=== PATIENT | male | born 1965 ===

== ENCOUNTER 2023-12-27 08:43 | Outpatient (AMB) | payer MEDICARE, MEDICAID, SELFPAY ==
--- NOTE | 2023-12-27 08:52 | MHC.OFFVIS ---
Vital Signs 12/27/23 08:53 Height 6 ft Weight 260 lb BMI 35.3 BP 140/76 H Blood Pressure Location Lt brachial Position Sitting Respiration 16 Pulse 79 Pulse Source Pulse Oximeter Pulse Oximetry (%) 96 Oxygen Delivery Method Room Air Intake Visit Reasons: Lumbar Degenerative Disease/Chronic Low Back Pain Allergies aspirin Adverse Reaction (Severe, Verified 12/27/23 08:59) violently sick ibuprofen Adverse Reaction (Severe, Verified 12/27/23 08:59) violently sick Sulfa (Sulfonamide Antibiotics) Adverse Reaction (Severe, Verified 12/27/23 08:59) violently sick Medication List - Last Reconciled 12/27/23 by Belle Khalil LPN albuterol sulfate 90 mcg/actuation (Ventolin HFA) inhalation methimazole 5 mg PO DAILY oxycodone myristate CR-ER (Xtampza ER) 72 mg PO BID tiotropium bromide 2.5 mcg/actuation (Spiriva Respimat) 2 puffs inhalation DAILY tiotropium bromide (Spiriva with HandiHaler) 1 cap inhalation DAILY HPI HPI Lumbar Degenerative Disease/Chronic Low Back Pain: Details: 58-year-old male who presents today to the office for evaluation of lumbar degenerative disease. He reports chronic neck and back pain. He had two lumbar surgeries and three neck surgeries in the past. He reports constant pain that has been bothersome for a long time. He is unable to do his ADLs. He states that he is unable to move or walk during pain. He has mild pain down his arms. He has had more than 150 spine injections in his back and neck, which have historically provided temporary relief ranging between two weeks to two months. He was seen in the [facility] and has done physical therapy 2-3 times in the past. He had a fractured femur and has screws and plates in his left leg. He also had surgery in both elbows and knees. He has a plastic implant in his neck. He is taking oral medications regime as prescribed which provides minimal relief.?He is unemployed. He is currently smoking 2 cigarettes a day. [facility] Medical History (Updated 01/18/24 @ 08:46 by Syed Back MD) Tobacco use disorder Other emphysema Major depression, chronic Lumbar degenerative disc disease Surgical History (Updated 01/18/24 @ 08:46 by Syed Back MD) History of lumbar surgery History of surgery on lower extremity H/O meniscectomy of right knee S/P right knee arthroscopy H/O spinal fusion S/P diskectomy H/O bursectomy Review of Systems Const All systems reviewed & are unremarkable except as noted in HPI and below Physical Exam Vital Signs: Last Vital Signs Pulse 79 12/27/23 08:53 Resp 16 12/27/23 08:53 BP 140/76 H 12/27/23 08:53 Pulse Ox 96 12/27/23 08:53 Oxygen Delivery Method Room Air 12/27/23 08:53 BMI result Body Mass Index 35.3 General: Appears afebrile. Alert and oriented. Mood and affect appropriate. Follows and participates in conversation appropriately. Respiratory effort is unlabored. Able to transition from sit to stand unassisted. Ambulates with bilaterally normal heel strike and toe off. Results Reviewed Results Reviewed: No imaging is available for review. Assessment & Plan Assessment & Plan (1) History of lumbar surgery: Code(s): Z98.890 - Other specified postprocedural states Category: Surgical (2) Lumbar degenerative disc disease: Code(s): M51.369 - Other intervertebral disc degeneration, lumbar region without mention of lumbar back pain or lower extremity pain Category: Medical Plan 58-year-old male with extensive history of cervical and lumbar spine issues status post multiple surgeries and many injections to his cervical and lumbar spine. He has been maintained with chronic opioid therapy for more than 30 years now. According to him, he is relatively stable at his current dose and is not interested in further treatment because his opioid medication keeps him functional. Previously getting 180 tablets of Xtampza, which gradually been down to 112 tablets per month by his PCP. His primary concern during today's appointment is the one-way weaning of his opioid medication, which has kept him functional and able to participate in his ADLs. He denies any history of not being in compliance or symptoms of opioid dependence or withdrawal. He states that he takes it as needed for his pain instead of a physiologic craving. He does smoke but has come down from 1 pack per day to 2 cigarettes per day. His primary fear regarding undergoing interventional therapy is that it will only provide him temporary relief and lead to long-term medication being cut down without necessarily long-term improvement in his pain symptoms. I had a long discussion with him about possible long-term interventions available for him, including spinal cord stimulation and intrathecal pain pumps. I provided him with a brochure for a [employer] SCS device that can be considered with 16 contact leads placed in his cervical spine and 16 contact leads placed in his lumbar spine. I discussed the risks and benefits of such a device. He still had concerns about his medication being weaned too aggressively in case he did undergo the spinal cord stimulator implant regardless of the long-term outcome of that implant being considered. I think he would benefit from potential SCS trials/implants with the understanding that we can allow him to use his Xtampza if his opioid requirement decreases following a potentially successful implant. 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 He will return to me in one month with his questions regarding spinal cord stimulation therapy and remain on an opioid program with routine drug screening with his primary prescriber. I also offered him a surgical evaluation which he declined. Scribed for Dr. Back by Flo Escobedo, curator medical museum, on 12/27/2023. I, Dr. Back, have personally reviewed and agree with the information entered by the scribe. Coding Level of Care Code New Pt Level 4 (84317) Diagnoses History of lumbar surgery Z98.890 Lumbar degenerative disc disease M51.369
[2023-12-27 08:53] VITALS: BP 140/76; PULSE 79; RESP 16; O2SAT 96; BMI 35.3
== END 2023-12-27 09:54 | disposition home or self-care (01) ==
PROVIDERS: PCP Internal Medicine; Referring Provider Internal Medicine; Visit Provider Internal Medicine
DX: Z98.890 Other specified postprocedural states (principal); M51.369 Other intervertebral disc degeneration, lumbar region without mention of lumbar back pain or lower extremity pain
CPT/HCPCS: 99204

== ENCOUNTER → 2023-12-27 08:43 | Outpatient (BNVA) | payer MEDICARE, MEDICAID, SELFPAY | PROVIDERS: PCP Internal Medicine; Referring Provider Internal Medicine; Visit Provider Internal Medicine | DX: M51.360 Other intervertebral disc degeneration, lumbar region with discogenic back pain only (principal); Z98.890 Other specified postprocedural states | CPT/HCPCS: 99202 ==

== ENCOUNTER 2024-01-26 08:45 | Outpatient (AMB) | payer MEDICARE, MEDICAID, SELFPAY ==
--- NOTE | 2024-01-26 08:59 | MHC.OFFVIS ---
Vital Signs 01/26/24 09:00 Height 6 ft Weight 260 lb BMI 35.3 BP 168/81 H Blood Pressure Location Rt brachial Position Sitting Respiration 15 Pulse 79 Pulse Source Pulse Oximeter Pulse Oximetry (%) 94 Oxygen Delivery Method Room Air Intake Visit Reasons: scs questions Allergies aspirin Adverse Reaction (Severe, Verified 01/26/24 09:02) violently sick ibuprofen Adverse Reaction (Severe, Verified 01/26/24 09:02) violently sick Penicillins Adverse Reaction (Severe, Verified 01/26/24 09:02) n/v Sulfa (Sulfonamide Antibiotics) Adverse Reaction (Severe, Verified 01/26/24 09:02) violently sick Medication List - Last Reconciled 01/26/24 by Belle Khalil LPN albuterol sulfate 90 mcg/actuation (Ventolin HFA) inhalation methimazole 5 mg PO DAILY oxycodone myristate CR-ER (Xtampza ER) 72 mg PO BID tiotropium bromide (Spiriva with HandiHaler) 1 cap inhalation DAILY HPI HPI scs questions: Details: 58-year-old male who presents today to the office to discuss SCS implant. 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 His last back surgery was in the late s and has an artificial disc at L4 level. He had two lumbar surgeries in the past. He is interested in moving forward with lumbar spinal cord stimulation trial. He reports he has sharp pain in the neck while eating and turning his neck sideways. He had three neck surgeries in the past including fusion at C6-7 levels in the . He is not sure when he had his last MRI of the neck done. He denies any implants or pacemaker placement. He is not followed by a psychologist. [facility] Medical History (Updated 01/18/24 @ 08:46 by Syed Back MD) Tobacco use disorder Other emphysema Major depression, chronic Lumbar degenerative disc disease Surgical History (Updated 02/08/24 @ 14:47 by Syed Back MD) History of lumbar surgery History of surgery on lower extremity H/O meniscectomy of right knee S/P right knee arthroscopy H/O spinal fusion S/P diskectomy H/O bursectomy Review of Systems Const All systems reviewed & are unremarkable except as noted in HPI and below Physical Exam Vital Signs: Last Vital Signs Pulse 79 01/26/24 09:00 Resp 15 01/26/24 09:00 BP 168/81 H 01/26/24 09:00 Pulse Ox 94 01/26/24 09:00 Oxygen Delivery Method Room Air 01/26/24 09:00 BMI result Body Mass Index 35.3 General: Appears afebrile. Alert and oriented. Mood and affect appropriate. Follows and participates in conversation appropriately. Respiratory effort is unlabored. Able to transition from sit to stand unassisted. Ambulates with bilaterally normal heel strike and toe off. Results Reviewed Results Reviewed: No imaging is available for review. Assessment & Plan Assessment & Plan (1) History of lumbar surgery: Code(s): Z98.890 - Other specified postprocedural states Category: Surgical (2) Lumbar degenerative disc disease: Code(s): M51.369 - Other intervertebral disc degeneration, lumbar region without mention of lumbar back pain or lower extremity pain Category: Medical (3) H/O spinal fusion: Comment: C 6-7 level Code(s): Z98.1 - Arthrodesis status Category: Surgical Plan For his lumbar post laminectomy syndrome, we agreed to proceed with a trial of spinal cord stimulation. We will plan on using a 16 contact [employer] device. Will place a referral for psychology clearance. Once we have received psychology clearance, we will plan for a trial of a spinal cord stimulator with [employer], 16-lead. The patient will receive a call from [facility] for the psychology assessment. I advised him to contact us if he does not hear from them in the next 2-3 weeks. For his cervical radicular pain in the setting of prior cervical spine surgery, I ordered an MRI of the cervical spine to rule out any new compressive pathology. We will review the MRI result when it is done and consider referral to neurosurgery as needed. Patient is in agreement with the plan. Scribed for Dr. Back by January medical numerical control operator, on 01/26/2024. I, Dr. Back, have personally reviewed and agree with the information entered by the scribe. Orders: Orders MR cervical spine wo con 01/26/24 M54.12 - Radiculopathy, cervical region Coding Level of Care Code Est Pt Level 3 (83863) Diagnoses History of lumbar surgery Z98.890 Lumbar degenerative disc disease M51.369 H/O spinal fusion Z98.1
[2024-01-26 09:00] VITALS: BP 168/81; PULSE 79; RESP 15; O2SAT 94; BMI 35.3
== END 2024-01-26 09:23 | disposition home or self-care (01) ==
LOC: HO.PMC 08:45
PROVIDERS: PCP Internal Medicine; Visit Provider Internal Medicine
DX: Z98.890 Other specified postprocedural states (principal); M51.369 Other intervertebral disc degeneration, lumbar region without mention of lumbar back pain or lower extremity pain; Z98.1 Arthrodesis status
CPT/HCPCS: 99213

== ENCOUNTER → 2024-01-26 08:45 | Outpatient (BNVA) | payer MEDICARE, MEDICAID, SELFPAY | PROVIDERS: PCP Internal Medicine; Visit Provider Internal Medicine | DX: M51.369 Other intervertebral disc degeneration, lumbar region without mention of lumbar back pain or lower extremity pain (principal); Z98.1 Arthrodesis status; Z98.890 Other specified postprocedural states | CPT/HCPCS: 99212 ==

== ENCOUNTER 2024-02-12 08:27 | Outpatient (REF) | payer MEDICARE, MEDICAID, SELFPAY ==
--- NOTE | ~2024-02-12 | XR_ITS ---
EXAMINATION: CHEST 2 VIEWS CLINICAL INFORMATION: PRE MRI CHEST XR HX NAIL IN CHEST. COMPARISON: No recent pertinent prior studies are available for comparison. TECHNIQUE: PA and lateral views of the chest were obtained. FINDINGS: Cardiac silhouette is normal in size. The lungs are well aerated. No radiopaque foreign body. Mild to moderate degenerative changes of the spine. XR/XR pre mri screening IMPRESSION: 1. No acute pulmonary disease. 2. No radiopaque foreign body. Electronically signed by: Kenroy Sandoval MD 02/12/2024 09:24 AM [facility]
== END 2024-02-12 08:28 | disposition home or self-care (01) ==
LOC: HO.MRI 08:27
PROVIDERS: PCP Internal Medicine; Visit Provider Internal Medicine
DX: M54.12 Radiculopathy, cervical region (principal)
CPT/HCPCS: 72141